=== PATIENT | female | born 1940 | race American Indian/Alaskan Native ===

== ENCOUNTER 2017-04-19 11:08 | Inpatient (IN) | payer MEDICARE ==
[2017-04-19] MEDS ORDERED: VANCOMYCIN/NS 1 GM/250 ML 1 GM/250 ML BAG IV ONE (12:00)
[2017-04-19] MEDS ORDERED: PERCOCET 5/325 PO PRN (12:02)
[2017-04-19] MEDS ORDERED: VANCOMYCIN/NS 1 GM/250 ML 1 GM/250 ML BAG IV SCH (14:30)
[2017-04-19] MEDS: ZOSYN/NS 4.5GM/100ML 4.5 GM/100 ML VIAL IV SCH ×2 (16:44→23:27)
[2017-04-19] MEDS: BABY ASPIRIN PO SCH (23:22)
--- NOTE | 2017-04-19 23:52 | History and Physical Report ---
History of Present Illness Date of examination: 04/19/17 Date of admission: 04/19/17 12:16 Chief complaint: CC l Knee redness 10 days History of present illness: KIVALINA 76 y/o female with recent L TKA on Mar sent by Dr Vilchis her orthopedic surgeon as direct admit for L knee possible infection.Patient has been having redness of L knee for last 10 days.No Fever or chills Past History Past Medical History: arthritis, hypertension, other (PN) Past Surgical History: total knee replacement Social history: no significant social history, lives with family Family history: hypertension Medications and Allergies Allergies Allergy/AdvReac Type Severity Reaction Status Date / Time lisinopril AdvReac Severe Swelling Verified 04/19/17 17:27 Home Medications Medication Instructions Recorded Confirmed Last Taken Type Aspirin EC [Ecotrin] 325 mg PO BID 04/19/17 04/19/17 04/19/17 History Celecoxib [celeBREX] 200 mg PO BID 04/19/17 04/19/17 04/19/17 13:00 History Gabapentin [Neurontin] 300 mg PO Q8HR 04/19/17 04/19/17 04/19/17 12:00 History Metoprolol [Lopressor] 12.5 mg PO DAILY 04/19/17 04/19/17 04/19/17 History amLODIPine [Norvasc] 5 mg PO DAILY 04/19/17 04/19/17 04/19/17 History oxyCODONE /ACETAMINOPHEN [Percocet 7.5 mg PO Q4-6H PRN 04/19/17 04/19/17 12:15 History 5/325 mg] Active Meds: Active Medications Aspirin (Baby Aspirin) 81 mg PO BID [facility] Last Admin: 04/19/17 23:22 Dose: 81 mg Celecoxib (Celebrex) 200 mg PO BID [facility] Last Admin: 04/19/17 23:22 Dose: 200 mg Piperacillin Sod/Tazobactam Sod (Zosyn/Ns 4.5gm/100ml) 4.5 gm in 100 mls @ 200 mls/hr IV Q8H [facility] PRN Reason: Protocol Last Admin: 04/19/17 23:27 Dose: Not Given Oxycodone/Acetaminophen (Percocet 5/325) 7.5 tab PO Q4H PRN PRN Reason: Pain, Moderate (4-6) Last Admin: 04/19/17 20:17 Dose: 1 tab Review of Systems All systems: negative Musculoskeletal: other (Redness of L knee) Exam - Constitutional Vitals: Temp Pulse Resp BP Pulse Ox 97.5 F L 66 20 143/62 97 04/19/17 20:04 04/19/17 20:04 04/19/17 20:04 04/19/17 20:04 04/19/17 20:04 General appearance: Present: no acute distress, well-nourished - EENT Eyes: Present: PERRL ENT: hearing intact, clear oral mucosa - Neck Neck: Present: supple, normal ROM - Respiratory Respiratory effort: normal Respiratory: bilateral: CTA - Cardiovascular Heart rate: 76 Rhythm: regular Heart Sounds: Present: S1 & S2. Absent: rub, click - Extremities Extremities: no ischemia, pulses intact, pulses symmetrical, No edema Extremity abnormal: erythema (L knee joint) Peripheral Pulses: within normal limits - Abdominal General gastrointestinal: Present: soft, non-tender, non-distended, normal bowel sounds Female genitourinary: Present: normal - Integumentary Integumentary: Present: clear, warm, dry - Musculoskeletal Musculoskeletal: gait normal, strength equal bilaterally - Psychiatric Psychiatric: appropriate mood/affect, intact judgment & insight - Neurologic Neurologic: CNII-XII intact, moves all extremities Results - Labs CBC & Chem 7: 04/20/17 04:07 04/20/17 04:07 Assessment and Plan Advance Directives: Yes (Full code) VTE prophylaxis?: Chemical Plan of care discussed with patient/family: Yes - Patient Problems (1) Cellulitis of knee, left Current Visit: Yes Status: Acute Plan to address problem: patient initiated on Zosyn and vanco ID consult for Abx choice (2) HTN (hypertension) Current Visit: Yes Status: Chronic Qualifiers: Hypertension type: essential hypertension Qualified Code(s): I10 - Essential (primary) hypertension Plan to address problem: Cont Metoprolol and Amlodipine (3) Arthritis Current Visit: Yes Status: Chronic Plan to address problem: On Celebrex (4) Peripheral neuropathy Current Visit: Yes Status: Chronic Qualifiers: Peripheral neuropathy type: polyneuropathy, unspecified Qualified Code(s): G62.9 - Polyneuropathy, unspecified Plan to address problem: On Gabapentin (5) DVT prophylaxis Current Visit: Yes Status: Acute Plan to address problem: on lovenox
[2017-04-20] MEDS ORDERED: PERCOCET 5/325 PO PRN ×2 (00:22→00:42)
[2017-04-20] MEDS ORDERED: ROXICODONE PO PRN (00:43)
[2017-04-20 04:37] LABS: Basophils # (Auto) 0.1 K/mm3 (0.0-0.1); Basophils % (Auto) 0.9 % (0.0-1.8); Eosinophils # (Auto) 0.7 K/mm3 (0.0-0.4); Eosinophils % (Auto) 6.1 % (0.0-4.3); Hematocrit 33.8 % (30.3-42.9); Lymphocytes # (Auto) 2.7 K/mm3 (1.2-5.4); Lymphocytes % (Auto) 22.7 % (13.4-35.0); Mean Corpuscular HGB Conc 33 % (30-34); Mean Corpuscular Hemoglobin 27 pg (28-32); Mean Corpuscular Volume 83 fl (79-97); Monocytes # (Auto) 1.1 K/mm3 (0.0-0.8); Monocytes % (Auto) 8.9 % (0.0-7.3); Platelet Count 344 K/mm3 (140-440); Red Blood Count 4.07 M/mm3 (3.65-5.03); Red Cell Distribution Width 14.5 % (13.2-15.2)
[2017-04-20 04:49] LABS: BUN/Creatinine Ratio 19; Blood Urea Nitrogen 15 mg/dL (7-17); Calcium 8.4 mg/dL (8.4-10.2); Hemolysis Index 10
[2017-04-20] MEDS: ZOSYN/NS 4.5GM/100ML 4.5 GM/100 ML VIAL IV SCH ×2 (05:30→15:03)
[2017-04-20] MEDS: NEURONTIN PO SCH ×2 (05:30→15:04)
--- NOTE | 2017-04-20 08:14 | Progress Note ---
Assessment and Plan /Cellulitis of knee, left patient initiated on Zosyn and vanco ID consult for Abx choice /HTN (hypertension) Cont Metoprolol and Amlodipine /Arthritis On Celebrex /Peripheral neuropathy On Gabapentin /DVT prophylaxis on lovenox Brief history: 76 y/o female with recent L TKA on Mar sent by Dr Vilchis her orthopedic surgeon as direct admit for L knee possible infection. Patient has been having redness of L knee for last 10 days. Radiological test: Right knee x-ray: Pending Hospitalist Physical exam: GENERAL: well-developed and well-nourished AAF sitting on bed appeared to be in no discomfort. HEENT: Normocephalic. Atraumatic. No conjunctival congestion or icterus. Patient has moist mucous membranes. NECK: Supple. Trachea midline. CHEST/LUNGS: Clear to auscultated bilaterally, breathing nonlabored. No wheezes crackles or rhonchi. HEART/CARDIOVASCULAR: Regular in rate and rhythm. S1 and S2 positive. ABDOMEN: Abdomen is soft, nontender. Patient has normal bowel sounds. SKIN: There is no rash. Warm and dry. NEURO: No focal motor deficit. Follows command. MUSCULOSKELETAL: left leg with surgical dressing. EXTRIMITY: No edema, no cyanosis or clubbing. PSYCH: Cooperative. Current Meds: Generic Name Dose Route Start Last Admin Trade Name Maynor PRN Reason Stop Dose Admin Amlodipine Besylate 5 mg 04/20/17 10:00 Norvasc PO DAILY ANGELA Aspirin 81 mg 04/19/17 22:00 04/19/17 23:22 Baby Aspirin PO 81 mg BID ANGELA Administration Aspirin 325 mg 04/20/17 10:00 Ecotrin PO BID ANGELA Celecoxib 200 mg 04/20/17 10:00 Celebrex PO BID ANGELA Enoxaparin Sodium 40 mg 04/20/17 22:00 Lovenox SUB-Q QDAY@2200 ANGELA Gabapentin 300 mg 04/20/17 06:00 04/20/17 05:30 Neurontin PO 300 mg Q8HR ANGELA Administration Piperacillin Sod/Tazobactam Sod 4.5 gm in 100 mls @ 200 mls/hr 04/19/17 14:00 04/20/17 05:30 Zosyn/Ns 4.5gm/100ml IV 200 mls/hr Q8H ANGELA Administration Protocol Metoprolol Tartrate 12.5 mg 04/20/17 10:00 Lopressor PO DAILY ANGELA Oxycodone HCl 2.5 mg 04/20/17 00:43 Roxicodone PO Q4H PRN Pain Oxycodone/Acetaminophen 1 tab 04/20/17 00:42 Percocet 5/325 PO Q4H PRN Pain, Moderate (4-6) Subjective Date of service: 04/20/17 Interval history: Patient seen and examined. Medical records and medication list reviewed. No acute event overnight noted by the RN. Patient denies any chest pain or difficulty breathing. Patient is tolerating diet. States that her left leg feels lot better today. She c/o occasional right knee pain Discussed plan of care at bedside with patient. Objective - Constitutional Vitals: Vital Signs - 12hr 04/19/17 04/20/17 23:08 05:07 Temperature 97.6 F 98.3 F Pulse Rate 61 61 Respiratory 20 20 Rate Blood Pressure 146/64 130/55 O2 Sat by Pulse 100 98 Oximetry - Labs CBC & Chem 7: 04/20/17 09:59 04/20/17 04:07 Labs: Abnormal lab results 04/20/17 Range/Units 04:07 WBC 12.0 H (4.5-11.0) K/mm3 MCH 27 L (28-32) pg [place] % (Auto) 8.9 H (0.0-7.3) % Eos % (Auto) 6.1 H (0.0-4.3) % Miller # 1.1 H (0.0-0.8) K/mm3 Eos # 0.7 H (0.0-0.4) K/mm3
[2017-04-20] MEDS ORDERED: ZOFRAN IV PRN (08:19)
[2017-04-20] MEDS ORDERED: VANCOMYCIN VIAL 500 MG in NACL 0.9% 100 ML IV SCH (09:00)
[2017-04-20] MEDS: LOPRESSOR PO SCH (09:00)
[2017-04-20] MEDS ORDERED: VANCOMYCIN PHARMACY TO DOSE IV SCH (09:00)
[2017-04-20] MEDS: NORVASC PO SCH (09:02)
[2017-04-20] MEDS: BABY ASPIRIN PO SCH (09:02)
--- NOTE | 2017-04-20 09:36 | Progress Note ---
Subjective Date of service: 04/20/17 Interval history: s/p TKA, admitted yesterday for observation. Redness upper leg, suspicious cellulitis. Patient doing well, redness significantly improved. Pain under control avss, NVI Calf soft NT dressing dry A/P Continue Abx, ASPRIN FOR dvt PAIN MEDS PRN SCD CONTINUE MEDICAL MANAGEMENT Objective Vital signs: Vital Signs - 12hr 04/19/17 04/20/17 04/20/17 23:08 05:07 08:06 Temperature 97.6 F 98.3 F 98.3 F Pulse Rate 61 61 63 Respiratory 20 20 18 Rate Blood Pressure 146/64 130/55 155/54 O2 Sat by Pulse 100 98 96 Oximetry 04/20/17 04/20/17 09:00 09:02 Temperature Pulse Rate Respiratory Rate Blood Pressure 144/81 144/81 O2 Sat by Pulse Oximetry - Labs CBC & BMP: 04/20/17 04:07 04/20/17 04:07 Labs: Abnormal lab results 04/20/17 04/20/17 Range/Units 04:07 09:00 WBC 12.0 H (4.5-11.0) K/mm3 MCH 27 L (28-32) pg [place] % (Auto) 8.9 H (0.0-7.3) % Eos % (Auto) 6.1 H (0.0-4.3) % [place] # 1.1 H (0.0-0.8) K/mm3 Eos # 0.7 H (0.0-0.4) K/mm3 POC Glucose 179 H (70-105)
[2017-04-20] MEDS ORDERED: ECOTRIN PO SCH (10:00)
[2017-04-20 10:48] LABS: Basophils # (Auto) 0.1 K/mm3 (0.0-0.1); Basophils % (Auto) 0.9 % (0.0-1.8); Eosinophils # (Auto) 0.7 K/mm3 (0.0-0.4); Eosinophils % (Auto) 6.7 % (0.0-4.3); Hemoglobin 10.5 gm/dl (10.1-14.3); Lymphocytes % (Auto) 18.6 % (13.4-35.0); Mean Corpuscular HGB Conc 32 % (30-34); Mean Corpuscular Hemoglobin 26 pg (28-32); Mean Corpuscular Volume 82 fl (79-97); Monocytes # (Auto) 0.9 K/mm3 (0.0-0.8); Platelet Count 362 K/mm3 (140-440); Red Cell Distribution Width 14.7 % (13.2-15.2)
--- NOTE | 2017-04-20 11:16 | XRay Report ---
RIGHT KNEE, 3 views: History: Right knee pain. Findings: Moderate to severe osteoarthritic changes are identified in the medial compartment and patellofemoral space. There is relative sparing of the lateral compartment. No evidence for fracture, bone lesion or large osteochondral defect. Small joint effusion is noted on the lateral view. IMPRESSION: Osteoarthritis. Small knee effusion.
--- NOTE | 2017-04-20 12:54 | Consultation ---
History of Present Illness - Reason for Consult Consult date: 04/20/17 leg cellulitis Requesting physician: LALA HORTA - History of Present Illness 76 years old female with history of Left TKA on 04/09/[address] Vilchis; admitted on 04/19/17 due to 10 day-history of left calf cellulitis. Denies any trauma or injury. Denies wound drainage. In the ED, temp 98.5, HR 69, R 18, O2 sat 94%, BP 134/64. XR knee small effusion. Microbiology: none Current Antimicrobials: Zosyn Vancomycin Previous Antimicrobials: Past History Past Medical History: arthritis, hypertension, other (PN) Past Surgical History: total knee replacement Social history: no significant social history, lives with family Family history: hypertension Medications and Allergies Allergies Allergy/AdvReac Type Severity Reaction Status Date / Time lisinopril AdvReac Severe Swelling Verified 04/19/17 17:27 Home Medications Medication Instructions Recorded Confirmed Last Taken Type Aspirin EC [Ecotrin] 325 mg PO BID 04/19/17 04/19/17 04/19/17 History Celecoxib [celeBREX] 200 mg PO BID 04/19/17 04/19/17 04/19/17 13:00 History Gabapentin [Neurontin] 300 mg PO Q8HR 04/19/17 04/19/17 04/19/17 12:00 History Metoprolol [Lopressor] 12.5 mg PO DAILY 04/19/17 04/19/17 04/19/17 History amLODIPine [Norvasc] 5 mg PO DAILY 04/19/17 04/19/17 04/19/17 History oxyCODONE /ACETAMINOPHEN [Percocet 7.5 mg PO Q4-6H PRN 04/19/17 04/19/17 12:15 History 5/325 mg] Active Meds: Active Medications Amlodipine Besylate (Norvasc) 5 mg PO DAILY [facility] Last Admin: 04/20/17 09:02 Dose: 5 mg Aspirin (Baby Aspirin) 81 mg PO BID [facility] Last Admin: 04/20/17 09:02 Dose: Not Given Celecoxib (Celebrex) 200 mg PO BID [facility] Last Admin: 04/20/17 09:00 Dose: 200 mg Enoxaparin Sodium (Lovenox) 40 mg SUB-Q QDAY@2200 [facility] Gabapentin (Neurontin) 300 mg PO Q8HR [facility] Last Admin: 04/20/17 05:30 Dose: 300 mg Piperacillin Sod/Tazobactam Sod (Zosyn/Ns 4.5gm/100ml) 4.5 gm in 100 mls @ 200 mls/hr IV Q8H [facility]GELA PRN Reason: Protocol Last Admin: 04/20/17 05:30 Dose: 200 mls/hr Vancomycin HCl 1,250 mg/ (Sodium Chloride) 262.5 mls @ 166.667 mls/hr IV Q24H [facility] Metoprolol Tartrate (Lopressor) 12.5 mg PO DAILY [facility] Last Admin: 04/20/17 09:00 Dose: 12.5 mg Ondansetron HCl (Zofran) 4 mg IV Q8H PRN PRN Reason: Nausea And Vomiting Last Admin: 04/20/17 09:02 Dose: 4 mg Oxycodone HCl (Roxicodone) 2.5 mg PO Q4H PRN PRN Reason: Pain Oxycodone/Acetaminophen (Percocet 5/325) 1 tab PO Q4H PRN PRN Reason: Pain, Moderate (4-6) Vancomycin HCl (Vancomycin Pharmacy To Dose) 1 each IV PKCONSULT ANGELA PRN Reason: Protocol Review of Systems All systems: negative (as per HPI rest neg) Physical Examination - Physical Exam Narrative exam: General appearance: Alert in NAD, conversant Eyes: anicteric sclerae, moist conjunctivae; no lid-lag; PERRLA HENT: Atraumatic; oropharynx clear. Neck: Trachea midline; supple, no thyromegaly or lymphadenopathy Lungs: CTA, with normal respiratory effort and no intercostal retractions CV: RRR, no murmurs Abdomen: Soft, non-tender; no masses or hepatosplenomegaly Extremities: LEFT surg wound well healed no drainage, mild erythema in anterior calf Skin: Normal temperature, turgor and texture; no rash, ulcers or subcutaneous nodules Psych: Appropriate affect, alert and oriented to person, place and time. Neuro: alert and oriented x 3. Moving all extermities Lines: No CVL / PICC - Constitutional Vitals: Vital Signs Temp Pulse Resp BP Pulse Ox 98.3 F 63 18 144/81 96 04/20/17 08:06 04/20/17 08:06 04/20/17 08:06 04/20/17 09:02 04/20/17 08:06 Temperature -Last 24 Hours Temperature 98.3 F Temperature 98.3 F Temperature 97.6 F Temperature 97.5 F Temperature 98.6 F Results - Labs CBC & Chem 7: 04/20/17 09:59 04/20/17 04:07 Labs: Abnormal lab results 04/20/17 04/20/17 04/20/17 Range/Units 04:07 09:00 09:59 WBC 12.0 H (4.5-11.0) K/mm3 MCH 27 L (28-32) pg [place] % (Auto) 8.9 H (0.0-7.3) % Eos % (Auto) 6.1 H (0.0-4.3) % [place] # 1.1 H (0.0-0.8) K/mm3 Eos # 0.7 H (0.0-0.4) K/mm3 POC Glucose 179 H (70-105) C-Reactive Protein 6.40 H (0.00-1.30) mg/dL 04/20/17 Range/Units 09:59 WBC (4.5-11.0) K/mm3 MCH 26 L (28-32) pg [place] % (Auto) 8.0 H (0.0-7.3) % Eos % (Auto) 6.7 H (0.0-4.3) % [place] # 0.9 H (0.0-0.8) K/mm3 Eos # 0.7 H (0.0-0.4) K/mm3 POC Glucose (70-105) C-Reactive Protein (0.00-1.30) mg/dL Assessment and Plan Assessment: 1) Left total knee replacement with mild cellulitis. CRP 6.4. 2) Leukocytosis-from knee cellulitis - better. Plan: -agree with zosyn and vancomycin for now -leg elevation -if clinically better ok to discharge on keflex 500 mg PO q6h and doxycycline 100 mg po q12h total 10 days Thanks for consultation Lani Swain
[2017-04-20] MEDS ORDERED: VANCOMYCIN 1,250 MG in NACL 0.9% 250ML 250 ML IV SCH (16:00)
[2017-04-20] MEDS ORDERED: LOVENOX SUB-Q SCH (22:00)
[2017-04-21] MEDS: NEURONTIN PO SCH ×3 (00:17→13:59)
[2017-04-21] MEDS: ZOSYN/NS 4.5GM/100ML 4.5 GM/100 ML VIAL IV SCH ×3 (00:17→14:03)
[2017-04-21] MEDS: BABY ASPIRIN PO SCH ×2 (00:17→09:35)
[2017-04-21] MEDS: LOPRESSOR PO SCH (09:33)
[2017-04-21] MEDS: NORVASC PO SCH (09:35)
[2017-04-21 12:29] VITALS: BP 113/46
--- NOTE | 2017-04-21 13:44 | Progress Note ---
Assessment and Plan Assessment: 1) Left total knee replacement with mild cellulitis. CRP 6.4. Clinically improving. 2) Leukocytosis-from knee cellulitis - resolved Plan: -leg elevation -ok to discharge on keflex 500 mg PO q6h (to cover Strep) and doxycycline 100 mg po q12h (to cover MRSA) total 10 days I am signing off Thanks for consultation Lani Swain Subjective Date of service: 04/21/17 Principal diagnosis: cellulitis Interval history: Feels better no fever no pain. Microbiology: none Current Antimicrobials: Zosyn Vancomycin Previous Antimicrobials: Objective - Exam Narrative Exam: General appearance: Alert in NAD, conversant Eyes: anicteric sclerae, moist conjunctivae; no lid-lag; PERRLA HENT: Atraumatic; oropharynx clear. Neck: Trachea midline; supple, no thyromegaly or lymphadenopathy Lungs: CTA CV: RRR, no murmurs Abdomen: Soft, non-tender; no masses or hepatosplenomegaly Extremities: LEFT surg wound well healed no drainage, mild erythema in anterior calf Skin: Normal temperature, turgor and texture; no rash, ulcers or subcutaneous nodules Psych: Appropriate affect, alert and oriented to person, place and time. Neuro: alert and oriented x 3. Moving all extermities Lines: No CVL / PICC - Constitutional Vitals: Vital Signs Temp Pulse Resp BP Pulse Ox 98.3 F 63 18 113/46 99 04/21/17 12:06 04/21/17 12:06 04/21/17 12:06 04/21/17 12:06 04/21/17 12:06 Temperature -Last 24 Hours Temperature 98.3 F Temperature 98.7 F Temperature 99.0 F Temperature 98.9 F Temperature 98.9 F Temperature 98.3 F Temperature 98.4 F - Labs CBC & Chem 7: 04/20/17 09:59 04/20/17 04:07
--- NOTE | 2017-04-21 13:48 | Progress Note ---
Subjective Date of service: 04/21/17 Principal diagnosis: cellulitis Interval history: patient doing good, no pain knee looks good no redness. dressing dry calf soft NT dc PLAN FOLLOW MEDICINE AND id RECOMMENDATIONS. pATIENT TO DO ROM knee exercises. Objective Vital signs: Vital Signs - 12hr 04/21/17 04/21/17 04/21/17 05:17 07:09 07:10 Temperature 99.0 F 98.7 F Pulse Rate 68 68 68 Respiratory 20 18 Rate Blood Pressure 130/58 Blood Pressure 117/54 [Left] O2 Sat by Pulse 98 99 98 Oximetry 04/21/17 04/21/17 04/21/17 09:33 09:35 12:06 Temperature 98.3 F Pulse Rate 65 Respiratory 18 Rate Blood Pressure 117/54 117/54 Blood Pressure 113/46 [Left] O2 Sat by Pulse 99 Oximetry - Labs CBC & BMP: 04/20/17 09:59 04/20/17 04:07
--- NOTE | 2017-04-21 14:43 | Discharge Summary ---
Providers - Providers Date of Admission: 04/19/17 12:16 Date of discharge: 04/21/17 Attending physician: THUY LANDRY 04/19/17 11:52 Consult to Physician [CONS] Routine Consulting Provider: AMBER MARIE Reason For Exam: CELLULITIS LT. KNEE Place consult to:: DR. MARIE Notified:: DR. YOST Phone number called:: [phone] Was contact made?: Yes If yes, spoke with:: DR. GARCIA Time called:: 10:53 Comment:: SPOKE WITH DR. MARIE. 04/20/17 07:53 Consult to Physician [CONS] Routine Consulting Provider: RED ROSS Reason For Exam: Cellulitis L knee Place consult to:: DR. DELEON Notified:: DR. DELEON If yes, spoke with:: Y Comment:: COMPLETED 04/20/17 07:54 Physical Therapy Evaluation and Treat [CONS] Routine Comment: Reason For Exam: L TKA Primary care physician: ALFREDO ISRAEL Hospitalization Hospital course: Brief history: 76 y/o female with recent L TKA on Mar sent by Dr Vilchis her orthopedic surgeon as direct admit for L knee possible infection. Patient has been having redness of L knee for last 10 days. Discharge diagnosis and management: /Cellulitis of knee, left patient initiated on Zosyn and vanco ID consult for Abx choice recommended to continue keflex and doxycycin for total 10 days /HTN (hypertension) Cont Metoprolol and Amlodipine /Arthritis with right knee pain cont On Celebrex /Peripheral neuropathy On Gabapentin /s/p left knee replacement cont Pt/OT with HH /DVT prophylaxis on lovenox Radiological test: Right knee x-ray: no fracture Hospitalist Physical exam: GENERAL: well-developed and well-nourished AAF sitting on bed appeared to be in no discomfort. HEENT: Normocephalic. Atraumatic. No conjunctival congestion or icterus. Patient has moist mucous membranes. NECK: Supple. Trachea midline. CHEST/LUNGS: Clear to auscultated bilaterally, breathing nonlabored. No wheezes crackles or rhonchi. HEART/CARDIOVASCULAR: Regular in rate and rhythm. S1 and S2 positive. ABDOMEN: Abdomen is soft, nontender. Patient has normal bowel sounds. SKIN: There is no rash. Warm and dry. NEURO: No focal motor deficit. Follows command. MUSCULOSKELETAL: left leg with surgical dressing. EXTRIMITY: No edema, no cyanosis or clubbing. PSYCH: Cooperative. Disposition: DC/[place]-06 HOME UNDER [facility] Time spent for discharge: 32 minutes Core Measure Documentation - Palliative Care Palliative Care/ Comfort Measures: Not Applicable Exam - Constitutional Vitals: Temp Pulse Resp BP Pulse Ox 98.3 F 63 18 113/46 99 04/21/17 12:06 04/21/17 12:06 04/21/17 12:06 04/21/17 12:06 04/21/17 12:06 Plan Activity: advance as tolerated Weight Bearing Status: Non-Weight Bearing Diet: low fat, low salt Durable Medical Equipment Needed Upon Discharge: Wheelchair Follow up with: ALFREDO ISRAEL MD [Primary Care Provider] - 7 Days Prescriptions: Aspirin EC [Aspirin Enteric Coated TAB] 81 mg PO QDAY #30 tablet. Cephalexin [Keflex] 500 mg PO Q6HR #32 capsule Doxycycline [Vibramycin CAP] 100 mg PO Q12HR #16 capsule oxyCODONE /ACETAMINOPHEN [Percocet 5/325 mg] 7.5 mg PO Q4-6H PRN #20 tablet PRN Reason: Pain
== END 2017-04-21 15:16 | disposition home health service (06) | DRG 560 ==
LOC: 3A 11:08 → UNDOADMIN 11:08 → 3B-SURG 12:16 → 3A 14:47 → 3B-SURG 15:09
PROVIDERS: ADMIT Internal Medicine; ATTEND Internal Medicine
DX: T84.54XA Infection and inflammatory reaction due to internal left knee prosthesis, initial encounter (principal); L03.116 Cellulitis of left lower limb; G62.9 Polyneuropathy, unspecified; Z82.49 Family history of ischemic heart disease and other diseases of the circulatory system; Z88.6 Allergy status to analgesic agent; Z88.5 Allergy status to narcotic agent; Z88.8 Allergy status to other drugs, medicaments and biological substances; I10 Essential (primary) hypertension; M25.462 Effusion, left knee; M17.11 Unilateral primary osteoarthritis, right knee; Y83.8 Other surgical procedures as the cause of abnormal reaction of the patient, or of later complication, without mention of misadventure at the time of the procedure; Y92.89 Other specified places as the place of occurrence of the external cause
CPT/HCPCS: 36415; 80048; 82962; 85025; 85652; 86140; G8978-GP; G8979-GP; J1650; J2405; J2543; J3370; J7050